=== PATIENT | male | born 1965 | race Asian ===

== ENCOUNTER 2023-06-05 06:50 | Day surgery (SDC) | payer OTHER ==
[~2023-06-05] VITALS: Ht 165.1 cm; Wt 81.6 kg
[2023-06-05] MEDS ORDERED: diphenhydrAMINE 50 MG/ML VIAL ONE (07:26)
[2023-06-05] MEDS ORDERED: MIDAZOLAM 2 MG/2 ML VIAL ONE (07:27)
[2023-06-05] MEDS ORDERED: fentaNYL citrate 0.05 MG/ML VIAL ONE ×2 (07:27)
[2023-06-05] MEDS ORDERED: LIDOCAINE 2% 100 MG/5 ML UJET TP ONE ×2 (07:28→08:20)
[2023-06-05] MEDS ORDERED: fentaNYL citrate 0.05 MG/ML VIAL IVP ONE (08:20)
[2023-06-05] MEDS ORDERED: MIDAZOLAM 2 MG/2 ML VIAL IVP ONE (08:20)
[2023-06-05] MEDS ORDERED: diphenhydrAMINE 50 MG/ML VIAL IVP ONE (08:20)
== END 2023-06-05 09:15 | disposition home or self-care (01) ==
LOC: MOR 06:50 → MMU 06:50 → MOR 09:15
PROVIDERS: ATTEND Internal Medicine Gastroenterology
DX: Z12.11 Encounter for screening for malignant neoplasm of colon (principal); D12.2 Benign neoplasm of ascending colon; D12.3 Benign neoplasm of transverse colon; I10 Essential (primary) hypertension; Z87.891 Personal history of nicotine dependence
CPT/HCPCS: 45385; 88305; J1200; J2250; J3010